=== PATIENT | male | born 2000 | race African-American/Black ===

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

== ENCOUNTER 2023-05-21 16:46 | Emergency (ER) | payer OTHER, SELFPAY ==
[2023-05-21] MEDS ORDERED: Lidocaine Viscous Sol 2% 15 ml UD Cup FS SCH (19:30)
[2023-05-21] MEDS ORDERED: Lidocaine 1% w/Epinephrine 1:100K 20 ML VIAL ONE (20:19)
== END 2023-05-21 20:57 | disposition home or self-care (01) ==
LOC: ERS 16:46
DX: K04.7 Periapical abscess without sinus (principal); Z87.891 Personal history of nicotine dependence
CPT/HCPCS: 99282